=== PATIENT | female | born 1990 | race Caucasian/White ===

== ENCOUNTER 2025-05-24 14:47 | Emergency (ER) | payer OTHER, SELFPAY ==
--- OUTSIDE RECORDS SUMMARY | 2018-12-13 08:49 | XMS_ITS | Continuity of Care Document ---
Author Organization [facility] Address [address] [id number] [address] Phone Care Team Providers Care Preschool Assistant Teacher Name Role Phone Nurse Specialist, Team Unavailable Unavailab le Allergies, Adverse Reactions, Alerts Substance Reaction Status Criticality clindamycin Anaphylaxis Active No Information CEPHALEXIN MONOHYDRATE Anaphylaxis Active No In formation Medications Medication Instructions Dosage Effective Dates (start - stop) Status Comments amitriptyline 10 mg tablet take 3 (30MG) by Oral route every bedtime start with 1 tablet at night and then increase to 3 as tolerated - Active Procedures Procedure Date OFFICE/OUTPATIENT VISIT, EST TISSUE EXAM BY PATHOLOGIST (PP $54) BX/CURETT OF CERVIX W/SCOPE URINE TEST (PP $7) OFFICE/OUTPATIENT VISIT, EST Ketorolac tromethamine inj 60 Mg, [place] l Promethazine hcl, Phenergan 25mg 2013 COMPREHEN METABOLIC PANEL (PP $18) URINE TEST (PP $7) ROUTINE VENIPUNCTURE (PP $3.50) 014 PAP IG (PP $35) PREV VISIT, NEW, AGE 18-39 CHYLMD TRACH DNA AMP PROBE N.GONORRHOEAE DNA AMP PROB SIALIDASE ENZYME ASSAY TRICHOMONAS ASSAY W/OPTIC Advance Directives Directive Yes / No Effective Date File Name No Information Encounters Encounter Description Practice Location Reason(s) For Visit Diagnoses Date Provider Providers Copied on Encounter [facility], [id number] [place], [place], [id number], [place] tel:[phone] [place] [address] No Information 9 Nurse Specialist Team. [address], [place], [place], [id number], [place]. tel:[phone] OFFICE/OUTPAT IENT VISIT, [facility], [id number] [place], [place], [address], [place] tel:[phone] Pediatrics F1 Sore throat and ear pain. SMP (chief complaint)i nsomnia (chief complaint) No Information 4 No Information [facility], [id number] [id number] [place], [place], [address], [place] tel:[phone] [place] [address] No Information 4 No Information [facility], [id number] [id number] [place], [address], [place] tel:[phone] [place] [address] Colposcopy (chief complaint) No Information 4 No Information [facility], [id number] [id number] [place], [address], [place] [phone] [place] [address] No Information 4 No Information OFFICE/OUTPAT IENT VISIT, [facility], [id number] 484294[facility] [place], [address], [place] tel:[phone] Pediatrics F1 Leg pain (chief complaint)h eadaches (chief complaint)p ossible (chief complaint) No Information 4 No Information [facility], [id number] 191491[facility] [place], [address], [place] tel:[phone] Family Medicine F1 No Information Apr-1 7-201 4 No Information [facility], [id number] [address], [address], [place] tel:[phone] Family Medicine F1 No Information Apr-0 2-201 4 No Information PREV VISIT, NEW, AGE 18-39 [facility], [id number] [place], [address], [place] tel:[phone] Pediatrics F1 Well Woman Exam (chief complaint) No Information Apr-0 2-201 4 No Information [facility], [id number] [address], [address], [place] tel:[phone] Family Medicine F1 No Information Apr-0 2-201 4 No Information [facility], [id number] [address], [address], [place] tel:[phone] Family Medicine F1 No Information Apr-0 2-201 4 No Information Family History Family Member Type Diagnosis Age At Onset Mother Problem (finding) alcoholism Father Problem (finding) alcoholism Mother Problem (finding) seizure disorder Father Problem (finding) raised blood lipids Problem (finding) Family history of Heari ng impairment Problem (finding) Family history of coronary arteriosclerosis Father Problem (finding) Allergies Father Problem (finding) premature coronary hear t disease Mother Problem (finding) depression Father Problem (finding) hypertension Problem (finding) Family history of Diabe jaylen mellitus Mother Problem (finding) Allergies Payers Payer name Insurance type Covered republican ID Authoriza tion(s) No Information Social History Type Description Quantity Date Captured Comments Alcohol Use Details Unknown Caffeine Use Details Unknown Tobacco Use Status Smoking Status No Information Sex Female Chief Complaint And Reason For Visit No Information Reason For Referral Reason For Referral No Information History Of Present Illness Encounter Date Complaint History Of Prese nt Illness Sore throat and ear pain. SMP (comments) Patient states that left ear has been bothering her for 4-5 days and is getting worse. Sore throat off and on. Coughing, no nasal congestion. No fever.Patient has been taking benadryl and robitussin. insomnia (comments) Patient stat es that she is having trouble sleeping. Has tried otc sleep aids and melatonin without much help. She does not drink caffeine. Trouble staying asleep and going to sleep. insomnia Sore throat and ear pain. SMP Sy mptoms x 4-5 days. SMP Colposcopy 23 yo wf g0 lmp 5/2 neg upt seen for HSIL (mod dysplastic) pap test.No history of immunosuppressive medication or illness.First Pap.No history of STD.Not currently sexually active. Functional Status Date Functional Assessmen t No Information Instructions Date Instruction Additional Infor jake Discussed with patie nt/family that this is a viral illness that will not improve with antibiotics. Comfort care including forcing fluids and tylenol/motrin PRN. Return to clinic if symptoms do not improve within 72hrs. Related to Acute nasopharyngitis (common cold) trial of amitriptyli nertc if not improvingdiscussed good sleep habits Related to Insomnia The patient underwen t colposcopic examination today for an HSIL/Mod Dysplastic pap smear; please refer to the colposcopic exam for details of possible biopsies and/or endocervical curettings. The patient is informed that treatment will be based on her pathology and colposcopy findings. She is requested to call Vinh Cheatham in 7-10 days for the results of her pending pathology. Post Colposcopy discharge instructions were provided: nothing per vagina x 7 days, call prn heavy vaginal bleeding (soaking a pad in 30 min) or temp > 100.4 with pelvic cramping. The importance of appropriate follow up was discussed. Related to Abnormal Pap smear of cervix Assessments Type Assessment Date No Information Patient Care Teams Name Effective Dates (start - stop) Status Members No Information
[2025-05-24 14:54] VITALS: BP 115/78; PULSE 82; RESP 16; O2SAT 100
[2025-05-24 15:46] VITALS: BP 104/85; PULSE 65; RESP 16; O2SAT 98
[2025-05-24 15:49] LABS: Hematocrit 38.1 % (36-47); Hemoglobin 12.30 g/dL (11.27-16.99); Mean Corpuscular HGB Conc 32.3 g/dL (30-55); Mean Corpuscular Hemoglobin 29.5 pg (27-33); Mean Corpuscular Volume 91.4 fl (85-98); Nucleated Red Blood Cells % 0 %; Platelet Count 325 10^3/cmm (157-399); Red Blood Count 4.17 10^6/uL (3.85-5.65); White Blood Count 8.61 10^3/uL (3.29-11.43)
--- NOTE | 2025-05-24 15:50 | ED_ITS ---
HPI - Female Genitourinary 2 General: Chief complaint: Vaginal Bleeding Stated complaint: 7 Weeks Possable Miscarage Time Seen by Provider: 05/24/25 15:22 Source: patient Mode of arrival: ambulatory Limitations: no limitations History of Present Illness: Patient is a 34-year-old female presents to ED today currently (approximately 7.5 weeks) with concerns of vaginal bleeding that started this morning. She has mainly noticed blood only when wiping. She is not complaining of pain or cramping. She states has been confirmed by her primary care office but she has not yet had an ultrasound. She is planning to follow-up with Dr. Zuniga at [facility] for OB care and has an appointment with their office soon. This is patient's second . She states she miscarried her first at approximately 9 weeks. MD elicited complaint: vaginal bleeding and possible miscarriage Pertinent past history: prior miscarriages Onset (ago): hour(s) Vaginal discharge: none Vaginal bleeding: scant Exacerbating factors: none Relieving factors: none Associated symptoms: Reports no associated symptoms; Deny abdominal pain or headache(s) Treatment prior to arrival: none Sexual activity: Yes Patient : Yes Related Data Home Medications ?Medication ?Instructions ?Recorded ?Confirmed acetaminophen 500 mg tablet 1,000 mg PO Q6H PRN Fever Or Pain 05/24/25 05/24/25 (Tylenol Extra Strength) melatonin 10 mg tablet 10 mg PO DAILY 05/24/2504/29 vitamins with calcium 1 tab PO DAILY 05/24/25 05/24/25 no.72-iron 27 mg-folic acid 1 mg tablet ( Vitamins Plus Low Iron) Allergies Allergy/AdvReac Type Severity Reaction Status Date / Time cephalexin (From Keflex) Allergy ALGY-Hives Verified 10/30/20 09:12 clindamycin Allergy ALGY-Hives Verified 10/30/20 09:12 Review of Systems 2 Const: Denies: fever(s) Card: Denies: chest pain Resp: Denies: dyspnea GI: Denies: abdominal pain, vomiting or change in bowel habits : Reports: vaginal bleeding; Denies: flank pain, difficulty voiding, dysuria, urinary frequency, urinary urgency, urinary hesitancy, hematuria or pelvic pain Musc: Denies: back pain Neuro: Denies: headache(s) or dizziness PFSH ED 2 PFSH: Social History Smoking and tobacco/nicotine status: current every day tobacco/nicotine user cigarettes Alcohol intake: never Substance/Drug Use: never Physical Exam 2 Const: COMMON NORMALS: no acute distress, no limitations, healthy appearing, alert and well nourished GENERAL APPEARANCE: cooperative Resp: COMMON NORMALS: normal respiratory effort GI: COMMON NORMALS: Normal to inspection, nondistended, normoactive bowel sounds present, Soft to palpation, non-tender, No hepatosplenomegaly present and no masses PALPATION: Yes Soft to palpation and Yes No hepatosplenomegaly present : COMMON NORMALS: Yes no CVA tenderness BLADDER/KIDNEY EXAM: Yes no CVA tenderness OB/EXTERNAL & SPECULUM: Deferred OB/external & speculum exam Back/Pelvis: COMMON NORMALS: no CVA tenderness Neuro: SENSORIUM/ORIENTATION: Yes alert Course 2 Vital Signs: Vital signs: Vital Signs Pulse Rate 65 05/24/25 15:46 Respiratory Rate 16 05/24/25 15:46 Blood Pressure 104/85 05/24/25 15:46 Pulse Oximetry 98 05/24/25 15:46 Oxygen Delivery Me thod Room Air 05/24/25 15:46 MDM - Female Medical Decision Making Patient is a female at what she believed was approximately 7.5 wks here for scant vaginal bleeding starting today. She is not complaining of any abdominal or pelvic pain. hCG today is 7952. She has had hCG completed through her primary care office [place] but I do not have access to these results. US imaging showing an intrauterine gestational sac with dates of 5w5d. No yolk sac or pole noted at this time. DDx includes early , non- viable , ectopic, pseudogestation, miscarriage, among others. Plan will be for her to get repeat hcg through PCP on Thursday to trend this. She will require repeat US imaging in 1-2 weeks for repeat evaluation. Return precautions were given regarding onset of pain or severe bleeding. Medical Records I reviewed the patient's medical records. Lab Data I reviewed the patient's lab results. 05/24/25 15:27 Radiology Impressions Transvaginal US 05/24/25 15:56 IMPRESSION: There is an empty intrauterine gestational sac with an estimated gestational age of 5 weeks 5 days. Laboratory Results WBC 8.61 10^3/uL (3.29-11.43) 05/24/25: RBC 4.17 10^6/uL (3.85-5.65) 05/24/25 15: Hgb 12.30 g/dL (11.27-16.99) 05/24/25 15: Hct 38.1 % (36-47) 05/24/25 15: MCV 91.4 fl (85-98) 05/24/25 15: MCH 29.5 pg (27-33) 05/24/25 15: MCHC 32.3 g/dL (30-55) 05/24/25 15: RDW 13.2 % (12.1-15.1) 05/24/25 15: Plt Count 325 10^3/cmm (157-399) 05/24/25: MPV 10.1 fL (7.4-10.4) 05/24/25: Neut % (Auto) 70.4 % 05/24/25:27 Lymph % (Auto) 21.8 % 05/24/25 15:27 Bonner % (Auto) 6.4 % 05/24/25: Eos % (Auto) 1.0 % 05/24/25: Baso % (Auto) 0.2 % 05/24/25: Neut # (Auto) 6.05 10^3/uL (1.8-7.7) 05/24/25: Lymph # (Auto) 1.9 10^3/uL (0.8-4.8) 05/24/25: Bonner # (Auto) 0.6 10^3/uL (0.2-0.9) 05/24/25: Eos # (Auto) 0.1 10^3/uL (0.0-0.8) 05/24/25: Baso # (Auto) 0.0 10^3/uL (0.0-0.1) 05/24/25: Nucleated RBC % (auto) 0 % 05/24/25: Nucleated RBCs # 0.0 /100WBC 05/24/25 15: Ser , Semi-Qnt 7952.00 mIU/mL 05/24/25 15:27 Blood Type O Positive 05/24/25 15:27 Rho(D) Type Rh positive 05/24/25 15:27 All radiology interpretation(s) finalized by discharge Discharge Plan Discharge Patient Disposition: Home Clinical Impression: with uncertain viability Qualifiers: Fetus number: single or unspecified fetus Qualified Code(s): O36.80X0 - with inconclusive viability, not applicable or unspecified Condition: Stable Prescriptions: No Action acetaminophen [Tylenol Extra Strength] 500 mg Tablet 1,000 mg PO Q6H PRN (Reason: Fever Or Pain) Vitamin Plus Low Iron 27 mg iron- 1 mg tablet 1 tab PO DAILY melatonin 10 mg Tablet 10 mg PO DAILY Discharge Orders: Discharge ED (Routine); Ordered 05/24/25 Ordered By: Angelina Lorenzana Referrals: Mary Davila [Primary Care Provider, Family Practice] Patient Instructions: (ED), Patient Portal & Jessica Instructions Activity Restrictions/Additional Instructions: As we discussed, your ultrasound today showing a gestational sac but no yolk sac or heart tone. They were dating you at 5 weeks 5 days. We discussed how this could be normal findings at this early stage in but could also indicate a pseudogestational sac or nonviable . You will require repeat ultrasound imaging in 1 to 2 weeks for further evaluation. We also discussed how your hCG today was roughly 7952. I do not have hcg levels from your primary care office so I do not know whether these are trending up as expected. I would like you to have a repeat hcg performed in 48 hours. As we discussed, if it anytime you begin developing severe abdominal or pelvic pain or severe vaginal bleeding, you need to immediately return to the emergency department. Print Language: Monegasque Coding Level of Care Code ED Lead Java [id number] Developer for Dalia Jean
--- NOTE | 2025-05-24 15:56 | USR_ITS ---
PROCEDURE INFORMATION: Exam: US , Transvaginal Exam date and time: 05/24/2025 4:22 PM Age: 34 years old Clinical indication: Lmp or gestational age (in weeks): 04/07/2025; Other: Spotting; ; Additional info: 7-8 wks preg, bleeding LABS AND CLINICAL REPORTS: Choriogonadotropin in serum (Serum HCG): 7952 mIU/mL Last menstrual period start date: 04/07/2025 Gestational age (Established): 6 w 5 d Estimated due date (Established): 01/12/2026 TECHNIQUE: Imaging protocol: Real-time transvaginal obstetrical ultrasound of the maternal pelvis with image documentation. Transvaginal imaging was used for better evaluation of the fetus, adnexa, and/or cervix. COMPARISON: No relevant prior studies available. FINDINGS: Gestation: Intrauterine gestation is visualized. No pole is visualized. No yolk sac is visualized. BIOMETRY: Mean sac diameter: 1.02 cm. EGA (MSD) is 5 w 5 d MATERNAL: Uterus: Uterus is normal. It measures about 8.4 x 4.4 x 4.1 cm. Right ovary/adnexa: Right ovary could not be visualized. Left ovary/adnexa: Left ovary could not be visualized. US/US OB transvaginal [id number] IMPRESSION: There is an empty intrauterine gestational sac with an estimated gestational age of 5 weeks 5 days.
[2025-05-24 17:20] VITALS: BP 115/69; PULSE 87; O2SAT 99
== END 2025-05-24 17:21 | disposition home or self-care (01) ==
PROVIDERS: Emergency Provider Physician Assistant; PCP Nurse Practitioner Family
DX: O36.80X0 Pregnancy with inconclusive fetal viability, not applicable or unspecified (principal); F17.210 Nicotine dependence, cigarettes, uncomplicated; Z3A.01 Less than 8 weeks gestation of pregnancy
CPT/HCPCS: 36415; 76817; 84702; 85025; 86900; 99284